=== PATIENT | female | born 2005 | race Caucasian/White ===

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

== ENCOUNTER → 2023-01-26 13:00 | Outpatient (BNVA) | payer BC, SELFPAY | PROVIDERS: Visit Provider Obstetrics & Gynecology | DX: E28.2 Polycystic ovarian syndrome (principal) | CPT/HCPCS: 84144 ==

== ENCOUNTER → 2023-03-27 13:56 | Outpatient (BNVA) | payer SELFPAY | PROVIDERS: Visit Provider Obstetrics & Gynecology | DX: Z32.00 Encounter for pregnancy test, result unknown (principal) | CPT/HCPCS: 81025; 84702 ==

== ENCOUNTER 2023-04-15 18:27 | Emergency (ER) | payer SELFPAY ==
--- NOTE | 2023-04-15 18:31 | XRR_ITS ---
PROCEDURE INFORMATION: Exam: XR Chest Exam date and time: 04/15/2023 6:57 PM Age: 18 years old Clinical indication: Pain; Chest pressure; Additional info: Cp TECHNIQUE: Imaging protocol: Radiologic exam of the chest. Views: 1 view. COMPARISON: No relevant prior studies available. FINDINGS: Lungs: No consolidation. Pleural spaces: Unremarkable. No pleural effusion. No pneumothorax. Heart/Mediastinum: No cardiomegaly. Bones/joints: No acute findings. XR/XR chest 1V portable [id number] IMPRESSION: No acute findings.
[2023-04-15 18:43] VITALS: BP 108/72; PULSE 78; RESP 14; TEMP 37.1; O2SAT 98; BMI 25.4
[2023-04-15 19:22] LABS: Basophils % 0.3 %; Eosinophils # 0.1 10^3/uL (0.0-0.8); Eosinophils % 1.4 %; Hematocrit 40.6 % (37.0-47.0); Hemoglobin 13.3 g/dL (11.5-15.3); Lymphocytes # 2.4 10^3/uL (1.5-6.5); Lymphocytes % 29.8 %; Mean Corpuscular HGB Conc 32.8 g/dL (30.0-36.0); Mean Corpuscular Hemoglobin 28.1 pg (28.0-34.0); Mean Corpuscular Volume 85.8 fl (81-99); Mean Platelet Volume 9.9 fL (7.4-10.4); Monocytes # 0.4 10^3/uL (0.2-0.9); Monocytes % 4.7 %; Neutrophils # 5.04 10^3/uL (1.8-8.0); Neutrophils % 63.4 %; Nucleated Red Blood Cells % 0 %; Platelet Count 293 10^3/cmm (130-400); Red Blood Count 4.73 10^6/uL (4.1-5.3); Red Cell Distribution Width 12.6 % (12.1-15.1); White Blood Count 7.9 10^3/uL (4.5-13.0)
[2023-04-15 19:35] LABS: HCG, Serum Qual Negative (Negative)
[2023-04-15 19:37] LABS: Alanine Aminotransferase 9 U/L (0-33); Albumin Level 4.5 g/dL (3.5-5.2); Alkaline Phosphatase 50 U/L (35-105); Aspartate Amino Transferase 13 U/L (0-32); Blood Urea Nitrogen 13 mg/dL (6-20); Calcium 9.4 mg/dL (8.5-10.5); Carbon Dioxide 25 mmol/L (22-29); Chloride 104 mmol/L (98-107); Globulin 2.5 g/dL (1.3-4.6); Glomerular Filtration Rate 157.3 mL/min (90-130); Glucose 82 mg/dL (65-115); Lipase 40 U/L (13-60); Osmolality Calculated 287 mOsm/kg (285-295); Sodium 139 mmol/L (136-145); Total Bilirubin 0.2 mg/dL (0.15-1.2)
--- NOTE | 2023-04-15 19:45 | ECG_ITS ---
[facility] Test Date: 2023-04-15 Pat Name: Leila Bowman Department: Room: Gender: Female Pediatric Rn: : 2005 Requested By: Joseph Crooks Order Number: [id number] Deng MD: Katie Costello M.D. Measurements Intervals [place] Rate: 76 P: 66 LA: 153 QRS: 58 QRSD: 78 T: 42 QT: 352 QTc: 397 Interpretive Statements SINUS RHYTHM No previous ECG available for comparison Electronically Signed On 04-16-2023 11:08:36 CDT by Katie Costello M.D. [id number]
--- NOTE | 2023-04-15 19:53 | ED_ITS ---
HPI - Chest Pain General: Chief Complaint: Chest Pain Stated Complaint: abd/ chest pain Time Seen by Provider: 04/15/23 19:28 Source: patient Mode of arrival: ambulatory Limitations: no limitations History of Present Illness: 18-year-old female states she is had a sharp chest pain over the last 2 to 3 weeks. States it is worse with palpation she denies any shortness of breath she had some diffuse abdominal cramping as well. She is resting comfortably and laughing while in the room she denies any diarrhea she has had some slight nausea. Associated symptoms: Reports abdominal pain and nausea; Deny dyspnea or fever(s) Review of Systems Const: Denies: fever(s) or chills ENMT: Denies: throat pain or dental pain Card: Reports: chest pain Resp: Denies: dyspnea GI: Reports: abdominal pain and nausea; Denies: diarrhea : Denies: dysuria Musc: Denies: neck pain or back pain Skin/Breast: Denies: rash Neuro: Denies: headache(s) PFSH ED PFSH: Medical History FAP (familial adenomatous polyposis) hx of intestinal surgery. No pertinent past medical history neghx: htn,dm,thyroid,dvt/pe PCP: None Psychiatric care Surgical History History of colectomy History of colostomy reversal History of resection of small bowel Family History Grandmother Diabetes maternal and paternal Hypertension maternal Breast cancer maternal Father Colon cancer Family/Other Colon cancer paternal Denies family history of Ovarian cancer Heart disease Family history of thyroid problem Uterine cancer Stroke Hyperchloremia Physical Exam Const: COMMON NORMALS: no acute distress, patient oriented x3 and healthy appe aring HENMT: COMMON NORMALS: normocephalic and atraumatic HEAD & SCALP: normocephalic and atraumatic Eye: COMMON NORMALS: Equal, round and reactive pupils present PUPIL: Yes Equal, round and reactive pupils present Neck/C-Spine: COMMON NORMALS: full ROM and supple Chest: COMMONS NORMALS: normal inspection of the chest OTHER: Point tenderness center of the chest Resp: COMMON NORMALS: normal respiratory effort, No retractions, No use of accessory muscles and clear to auscultation bilaterally AUSCULTATION: clear to auscultation bilaterally Cardio: COMMON NORMALS: regular rate, regular rhythm and No murmurs present (Cardio) RATE: regular rate RHYTHM: regular rhythm GI: COMMON NORMALS: Normal to inspection, nondistended, normoactive bowel sounds present, Soft to palpation, non-tender and no masses PALPATION: Yes Soft to palpation Extremity: COMMON NORMALS: normal to inspection and full ROM Neuro: COMMON NORMALS: patient oriented x3, moves all extremities and no focal motor deficits Psych: COMMON NORMALS: mental status grossly normal, Normal thought process present and cooperative THOUGHT PROCESS: Normal thought process present Skin: COMMON NORMALS: no rashes or lesions noted and no wounds GENERAL SKIN EXAM: no rashes or lesions noted Course Vital Signs: Vital signs: Vital Signs Temperature 98.8 F 04/15/23 18:43 Pulse Rate 75 04/15/23 20:00 Respiratory Rate 20 H 04/15/23 20:00 Blood Pressure 121/86 04/15/23 20:00 Pulse Oximetry 100 04/15/23 20:00 Oxygen Delivery Me thod Room Air 04/15/23 20:00 MDM - Chest Pain Medical Decision Making Says she doesPatient presents here with chest pains atypical in nature her x-ray EKG and blood work is all normal she had some slight pelvic pain urinalysis is normal ultrasound does show her history of PCOS we will prescribe her Naprosyn she is stable for discharge she is follow-up with PCP and return if worsening. Medical Records I reviewed the patient's medical records. Lab Data I reviewed the patient's lab results. 04/15/23 19:05 04/15/23 19:05 Radiology Impressions Chest X-Ray 04/15/23 18:31 IMPRESSION: No acute findings. Pelvis Ultrasound 04/15/23 19:59 IMPRESSION: Somewhat limited details as described above. Left ovarian cyst, likely benign hemorrhagic cyst. No large solid elements or obvious signs of torsion. Follow-up ultrasound assessment may be helpful if symptoms persist and to ensure resolution. Laboratory Results WBC 7.9 10^3/uL (4.5-13.0) 04/15/23 19:05 RBC 4.73 10^6/uL (4.1-5.3) 04/15/23 19:05 Hgb 13.3 g/dL (11.5-15.3) 04/15/23 19:05 Hct 40.6 % (37.0-47.0) 04/15/23 19:05 MCV 85.8 fl (81-99) 04/15/23 19:05 MCH 28.1 pg (28.0-34.0) 04/15/23 19:05 MCHC 32.8 g/dL (30.0-36.0) 04/15/23 19:05 RDW 12.6 % (12.1-15.1) 04/15/23 19:05 Plt Count 293 10^3/cmm (130-400) 04/15/23 19:05 MPV 9.9 fL (7.4-10.4) 04/15/23 19:05 Neut % (Auto) 63.4 % 04/15/23 19:05 Lymph % (Auto) 29.8 % 04/15/23 19:05 [place] % (Auto) 4.7 % 04/15/23 19:05 Eos % (Auto) 1.4 % 04/15/23 19:05 Baso % (Auto) 0.3 % 04/15/23 19:05 Neut # (Auto) 5.04 10^3/uL (1.8-8.0) 04/15/23 19:05 Lymph # (Auto) 2.4 10^3/uL (1.5-6.5) 04/15/23 19:05 [place] # (Auto) 0.4 10^3/uL (0.2-0.9) 04/15/23 19:05 Eos # (Auto) 0.1 10^3/uL (0.0-0.8) 04/15/23 19:05 Baso # (Auto) 0.0 10^3/uL (0.0-0.1) 04/15/23 19:05 Nucleated RBC % (auto) 0 % 04/15/23 19:05 Nucleated RBCs # 0.0 /100WBC 04/15/23 19:05 Sodium 139 mmol/L (136-145) 04/15/23 19:05 Potassium 4.0 mmol/L (3.5-5.1) 04/15/23 19:05 Chloride 104 mmol/L (98-107) 04/15/23 19:05 Carbon Dioxide 25 mmol/L (22-29) 04/15/23 19:05 Anion Gap 14.0 (5-19) 04/15/23 19:05 BUN 13 mg/dL (6-20) 04/15/23 19:05 Creatinine 0.5 mg/dL (0.5-0.9) 04/15/23 19:05 GFR Calculation 157.3 mL/min (90-130) H 04/15/23 19:05 Glucose 82 mg/dL (65-115) 04/15/23 19:05 Calculated Osmolality 287 mOsm/kg (285-295) 04/15/23 19:05 Calcium 9.4 mg/dL (8.5-10.5) 04/15/23 19:05 Total Bilirubin 0.2 mg/dL (0.15-1.2) 04/15/23 19:05 AST 13 U/L (0-32) 04/15/23 19:05 ALT 9 U/L (0-33) 04/15/23 19:05 Alkaline Phosphatase 50 U/L (35-105) 04/15/23 19:05 Total Protein 7.0 g/dL (6.6-8.7) 04/15/23 19:05 Albumin 4.5 g/dL (3.5-5.2) 04/15/23 19:05 Globulin 2.5 g/dL (1.3-4.6) 04/15/23 19:05 Lipase 40 U/L (13-60) 04/15/23 19:05 HCG, Qual Negative (Negative) 04/15/23 19:05 Urine Color Yellow (Yellow) 04/15/23 20:05 Urine Appearance Clear (CLEAR) 04/15/23 20:05 Urine pH 7 (5-7) 04/15/23 20:05 Ur Specific [place] 1.015 (1.005-1.030) 04/15/23 20:05 Urine Protein Neg (Negative) 04/15/23 20:05 Urine Glucose (UA) Norm (Normal) 04/15/23 20:05 Urine Ketones Negative (Negative) 04/15/23 20:05 Urine Blood Neg (Negative) 04/15/23 20:05 Urine Nitrate Negative (Negative) 04/15/23 20:05 Urine Bilirubin Neg (Negative) 04/15/23 20:05 Urine Urobilinogen Norm mg/dL (Negative) 04/15/23 20:05 Ur Leukocyte Esterase Negative (Negative) 04/15/23 20:05 EKG Data EKG 1: I personally reviewed and interpreted this EKG as follows: EKG interpretation date: 04/15/23 EKG interpretation time: 19:45 Interpretation: nsr hr [address] or t wave abnormalities qrs 78 qtc 382 Discharge Plan Discharge Patient Disposition: Home Clinical Impression: Chest wall pain, Nausea, Ovarian cyst Condition: Stable Prescriptions: New ondansetron 4 mg tablet,disintegrating 4 mg PO Q6H PRN (Reason: nausea and vomiting) Qty: 14 0RF Naprosyn 500 mg tablet 500 mg PO BID PRN (Reason: pain) Qty: 20 0RF No Action letrozole 2.5 mg tablet 2.5 mg PO DAILY 5 Days Qty: 5 4RF Rx Instructions: begin day 3 of cycle take daily through day 7 of menstrual cycle medroxyprogesterone [Provera] 10 mg tablet 10 mg PO DAILY Qty: 14 4RF Rx Instructions: start after missed period; take daily for 10 days Alive Daily Support 180 mcg-25 mg- 25 mg tablet,chewable 1 tab PO QDAY Qty: 90 2RF prenat.vits,tahmina,vvd-gryt-jzgrn Tablet 1 tab PO DAILY Qty: 30 4RF albuterol 90 mcg/actuation Aerosol 90 mcg inhalation PRN PRN (Reason: Shortness Of Breath Or Wheezing) Discharge Orders: Discharge ED (Routine); Ordered 04/15/23 Ordered By: Joseph Crooks Discharge Diet: Advance as tolerated Discharge Activity: Resume usual activity Patient Instructions: Chest Pain - Chest Wall, Acute Nausea and Vomiting (ED) Coding Level of Care Code ED Sort Manager for Keith Duron
[2023-04-15] MEDS: ketorolac 30 mg/mL INJ 15 MG IVP (19:57)
[2023-04-15] MEDS: ondansetron 2 mg/ML SDV 2 mL 4 MG IVP (19:57)
--- NOTE | 2023-04-15 19:59 | USR_ITS ---
PROCEDURE INFORMATION: Exam: US Pelvis Complete, Transabdominal and US Duplex Artery and Vein, Ovaries, Complete Exam date and time: 04/15/2023 8:50 PM Age: 18 years old Clinical indication: Pelvic pain TECHNIQUE: Imaging protocol: Real-time transabdominal pelvic ultrasound with image documentation. Real-time duplex ultrasound scan of the arterial and venous flow of the ovaries with B-mode, color Doppler flow and spectral waveform analysis. Complete Pelvis, Complete Duplex. Duplex exam was performed to evaluate for torsion and other vascular conditions. COMPARISON: US transvaginal [id number] 11/20/2022 3:38 PM FINDINGS: Uterus: The anteverted uterus measures about 7.2 x 4.5 by 5.4 cm. Suboptimally visualized endometrium measuring 2-3 in thickness with no large polypoid mass or significant fluid/debris. No large uterine myoma or obvious imaging signs of adenomyosis. Cervix: Suboptimally visualized cervix. Right ovary/adnexa: Right ovary measures 3.4 x 2.9 x 3.9 cm. No suspicious adnexal region masses or ovarian stromal edema on either side. There is flow in both ovarian parenchyma demonstrating normal spectral waveforms. Left ovary/adnexa: Multiple transabdominal pelvic ultrasound images were obtained including duplex imaging due to pain and to exclude ovarian torsion. Details are somewhat limited due to lack of endovaginal imaging. Left ovary measures 5.3 x 3.5 by 5.5 cm. The left ovary contains a unilocular cyst with heterogeneous internal echo and probable thin internal striations, measuring 3.3 x 3.9 x 2.2 cm. Details are limited due to technical factors however features are highly suggestive of benign hemorrhagic left ovarian cyst. An endometrioma may also be considered. Lack of hydrosalpinx and regional hyperemia makes acute PID somewhat unlikely. Neoplasm is less likely. Intraperitoneal space: No significant free pelvic fluid. Urinary bladder: Urinary bladder is suboptimally assessed due to nondistention. US/US pelvic complete* [id number] IMPRESSION: Somewhat limited details as described above. Left ovarian cyst, likely benign hemorrhagic cyst. No large solid elements or obvious signs of torsion. Follow-up ultrasound assessment may be helpful if symptoms persist and to ensure resolution.
[2023-04-15 20:00] VITALS: BP 121/86; PULSE 75; RESP 20; O2SAT 100
[2023-04-15 20:12] LABS: Add Urine Microscopic? NO; Charge for UA Resulting for Rev
[2023-04-15 20:16] LABS: Urine Appearance Clear (CLEAR); Urine Color Yellow (Yellow)
[2023-04-15 20:19] LABS: Bilirubin Urine Neg (Negative); Blood Urine Neg (Negative); Glucose Urine UA Norm (Normal); Ketones Urine Negative (Negative); Leukocyte Esterase Urine Negative (Negative); Nitrate Urine Negative (Negative); Protein Urine Neg (Negative); Specific Gravity, Urine 1.015 (1.005-1.030); Urobilinogen Urine Norm (Negative); pH Urine 7 (5-7)
[2023-04-15 21:37] VITALS: BP 110/75; PULSE 70; O2SAT 100
--- NOTE | 2023-04-19 13:10 | DCPLANNER ---
manager fleet called patient due to no primary care physician - no answer at this time.
== END 2023-04-15 21:25 | disposition home or self-care (01) ==
PROVIDERS: Emergency Provider Emergency Medicine
DX: R07.89 Other chest pain (principal); R11.0 Nausea; N83.202 Unspecified ovarian cyst, left side
CPT/HCPCS: 36415; 71045; 76856; 80053; 81003; 83690; 84703; 85025; 93005; 96374; 96375; 99285; J1885; J2405

== ENCOUNTER 2023-05-05 07:13 | Emergency (ER) | payer BC, SELFPAY ==
[2023-05-05 07:23] VITALS: BP 117/76; PULSE 91; RESP 15; TEMP 37; O2SAT 98; BMI 25.4
[2023-05-05 07:27] VITALS: BP 117/76; PULSE 80; O2SAT 100
[2023-05-05 07:31] VITALS: RESP 14; O2SAT 100
[2023-05-05] MEDS: morphine 4 mg/mL SDV 1 mL IVP (07:31)
[2023-05-05] MEDS: ketorolac 30 mg/mL INJ IVP (07:32)
[2023-05-05] MEDS: tizanidine 4 mg Tablet PO (07:33)
[2023-05-05] MEDS: dexamethasone 10 mg/mL INJ IVP (07:33)
--- NOTE | 2023-05-05 07:40 | W.ED.BACK ---
HPI - Back Pain/Injury General: Chief Complaint: Back Pain/Injury Stated Complaint: back pain going to legs Time Seen by Provider: 05/05/23 07:23 Source: patient Mode of arrival: ambulatory History of Present Illness: 18-year-old female who presents to the emergency room with complaints of back pain primarily into her right leg but somewhat to both legs. Doing a little more heavy lifting the last few days at work. His pain started yesterday at around 4:00. No trauma no injury no previous surgery to her back. She has had episodes of back pain in the past. No fecal incontinence or urinary retention MD elicited complaint: back pain Pertinent past history: prior back pain Onset (ago): day(s) (1) Timing: constant Quality: sharp Location: lumbar spine Radiation: right upper leg and right leg below the knee Exacerbating factors: walking Relieving factors: supine and sitting upright Context: turning/twisting Associated symptoms: Deny abdominal pain, arthralgias, chills, change in bowel habits, difficulty walking, dysuria, fatigue, fecal incontinence, fever(s), hematuria, myalgias, nausea, numbness, syncope, tingling/numbness/burning, urinary frequency, urinary urgency, vomiting or weakness Review of Systems Const: Denies: fever(s), chills or fatigue Card: Denies: syncope Resp: Denies: dyspnea, productive cough or non-productive cough GI: Denies: abdominal pain, nausea, vomiting, fecal incontinence or change in bowel habits : Denies: dysuria, urinary frequency, urinary urgency or hematuria Musc: Reports: back pain and extremity pain Skin/Breast: Denies: rash or pruritus Neuro: Denies: difficulty walking PFS ED PFSH: Medical History FAP (familial adenomatous polyposis) hx of intestinal surgery. No pertinent past medical history neghx: htn,dm,thyroid,dvt/pe PCP: None Psychiatric care Surgical History History of colectomy History of colostomy reversal History of resection of small bowel Family History Grandmother Diabetes maternal and paternal Hypertension maternal Breast cancer maternal Father Colon cancer Family/Other Colon cancer paternal Denies family history of Ovarian cancer Heart disease Family history of thyroid problem Uterine cancer Stroke Hyperchloremia Physical Exam Const: GENERAL APPEARANCE: cooperative and comfortable ORIENTATION/CONSCIOUSNESS: Yes awake, Yes oriented to person, Yes oriented to place and Yes oriented to time HENMT: COMMON NORMALS: normocephalic, atraumatic and hearing grossly normal bilaterally HEAD & SCALP: normocephalic and atraumatic Resp: COMMON NORMALS: normal respiratory effort, No retractions, No use of accessory muscles and clear to auscultation bilaterally AUSCULTATION: clear to auscultation bilaterally Cardio: COMMON NORMALS: regular rate, regular rhythm and No murmurs present (Cardio) RATE: regular rate RHYTHM: regular rhythm Extremity: COMMON NORMALS: normal to inspection, capillary refill normal, no clubbing, cyanosis or edema, no calf tenderness and no pedal edema Neuro: SENSORIUM/ORIENTATION: Yes oriented to person, Yes oriented to place and Yes oriented to time OTHER: Deep tendon reflexes +2/4 bilaterally at the patellar tendon dorsum plantar flex strength 5 of 5 EHL +5 sensation lower extremities normal Skin: COMMON NORMALS: no rashes or lesions noted GENERAL SKIN EXAM: no rashes or lesions noted Course Vital Signs: Vital signs: Vital Signs Temperature 98.6 F 05/05/23 07:23 Pulse Rate 87 05/05/23 08:14 Respiratory Rate 14 05/05/23 07:31 Blood Pressure 117/76 05/05/23 08:14 Pulse Oximetry 98 05/05/23 08:14 Oxygen Delivery Me thod Room Air 05/05/23 07:27 MDM - Back Pain/Injury Medical Decision Making No red flag symptoms exam benign. Improved with medications given discharge home with diclofenac steroid taper tizanidine note given for work if symptoms persist follow-up with primary care Discharge Plan Discharge Patient Disposition: Home Clinical Impression: Strain of lumbar region Condition: Stable Prescriptions: New tizanidine 4 mg tablet 4 mg PO Q6H PRN (Reason: muscle spasticity) Qty: 20 0RF Rx Instructions: do not exceed 3 doses per 24 hrs prednisone 20 mg tablet 20 mg PO TID Qty: 15 0RF Rx Instructions: 1 p.o. 3 times daily x3 days, 1 p.o. twice daily x2 days, 1 p.o. daily x2 days diclofenac sodium 75 mg tablet,delayed release (DR/EC) 75 mg PO Q12H PRN (Reason: pain) Qty: 20 0RF Discontinued Alive Daily Support 180 mcg-25 mg- 25 mg tablet,chewable 1 tab PO QDAY Qty: 90 2RF naproxen [Naprosyn] 500 mg tablet 500 mg PO BID PRN (Reason: pain) Qty: 20 0RF No Action letrozole 2.5 mg tablet 2.5 mg PO DAILY 5 Days Qty: 5 4RF Rx Instructions: begin day 3 of cycle take daily through day 7 of menstrual cycle medroxyprogesterone [Provera] 10 mg tablet 10 mg PO DAILY Qty: 14 4RF Rx Instructions: start after missed period; take daily for 10 days prenat.vits,tahmina,bcm-tzks-rfjfn Tablet 1 tab PO DAILY Qty: 30 4RF albuterol 90 mcg/actuation Aerosol 90 mcg inhalation PRN PRN (Reason: Shortness Of Breath Or Wheezing) ondansetron 4 mg tablet,disintegrating 4 mg PO Q6H PRN (Reason: nausea and vomiting) Qty: 14 0RF Discharge Orders: Discharge ED (Routine); Ordered 05/05/23 Ordered By: Tao Delcid Discharge Diet: Usual diet Discharge Activity: Increase activity as tolerated Patient Instructions: Back Pain (ED), Opioid Safety, Pain Management Stand Alone Forms: Work/School Release Coding Level of Care Code ED Instrument Room Technician for Keith Duron
[2023-05-05 08:14] VITALS: BP 117/76; PULSE 87; O2SAT 98
== END 2023-05-05 08:15 | disposition home or self-care (01) ==
PROVIDERS: Emergency Provider Family Medicine
DX: S33.5XXA Sprain of ligaments of lumbar spine, initial encounter (principal); X50.0XXA Overexertion from strenuous movement or load, initial encounter
CPT/HCPCS: 96374; 96375; 99284; J1100; J1885; J2270

== ENCOUNTER → 2023-05-15 10:39 | Outpatient (BNVA) | payer BC, SELFPAY | PROVIDERS: Visit Provider Family Medicine | DX: Z32.00 Encounter for pregnancy test, result unknown (principal) | CPT/HCPCS: 84702 ==

== ENCOUNTER → 2023-05-30 15:00 | Outpatient (BNVA) | payer BC, SELFPAY | PROVIDERS: Visit Provider Obstetrics & Gynecology | DX: Z32.00 Encounter for pregnancy test, result unknown (principal) | CPT/HCPCS: 84702 ==

== ENCOUNTER 2024-03-22 19:38 | Emergency (ER) | payer SELFPAY ==
[2024-03-22 20:04] VITALS: BP 110/72; PULSE 73; RESP 17; TEMP 37.1; O2SAT 98; BMI 25.7
[2024-03-22 21:45] LABS: Basophils % 0.2 %; Eosinophils % 0.7 %; Hematocrit 37.1 % (36-47); Lymphocytes # 1.6 10^3/uL (0.8-4.8); Lymphocytes % 26.6 %; Mean Corpuscular HGB Conc 32.6 g/dL (30-55); Mean Corpuscular Volume 85.9 fl (85-98); Mean Platelet Volume 10.4 fL (7.4-10.4); Monocytes # 0.3 10^3/uL (0.2-0.9); Monocytes % 4.2 %; Neutrophils # 4.08 10^3/uL (1.8-7.7); Neutrophils % 68.1 %; Nucleated Red Blood Cells % 0 %; Platelet Count 231 10^3/cmm (157-399); Red Blood Count 4.32 10^6/uL (3.85-5.65); Red Cell Distribution Width 13.2 % (12.1-15.1); White Blood Count 5.98 10^3/uL (3.29-11.43)
[2024-03-22 22:24] LABS: Alanine Aminotransferase 8 U/L (0-33); Albumin Level 4.4 g/dL (3.5-5.2); Alkaline Phosphatase 46 U/L (35-105); Anion Gap 14.7 (5-19); Aspartate Amino Transferase 10 U/L (0-32); Blood Urea Nitrogen 18 mg/dL (6-20); Calcium 8.7 mg/dL (8.5-10.5); Carbon Dioxide 24 mmol/L (22-29); Chloride 106 mmol/L (98-107); Creatinine Clr Calc Pharmacy 143.9971; Globulin 2.8 g/dL (1.3-4.6); Glomerular Filtration Rate 155.7 mL/min (90-130); Glucose 84 mg/dL (65-115); Osmolality Calculated 293 mOsm/kg (285-295); Potassium 3.7 mmol/L (3.5-5.1); Sodium 141 mmol/L (136-145); Total Bilirubin 0.2 mg/dL (0.15-1.2); Total Protein 7.2 g/dL (6.6-8.7)
--- NOTE | 2024-03-22 23:02 | USR_ITS ---
PROCEDURE INFORMATION: Exam: US Pelvis, Transvaginal Exam date and time: 03/22/2024 11:54 PM Age: 19 years old Clinical indication: Pelvic pain; Additional info: Vaginal bleeding TECHNIQUE: Imaging protocol: Real-time transvaginal pelvic ultrasound with image documentation. Transvaginal imaging was used for better evaluation of the endometrium, adnexa, and/or cervix. COMPARISON: US pelvic complete* [id number] 04/15/2023 8:50 PM FINDINGS: Uterus: Uterus is normal. Endometrial stripe is normal. Cervix: Trace nonspecific fluid in the cervix. Right ovary/adnexa: Normal. No mass. Normal ovarian blood flow. Left ovary/adnexa: Normal. No mass. Normal ovarian blood flow. Intraperitoneal space: Trace nonspecific fluid in the pelvis. US/US transvaginal [id number] IMPRESSION: 1. Uterus and ovaries appear within normal limits 2. Trace nonspecific fluid in the cervix. 3. Trace nonspecific fluid in the pelvis.
[2024-03-22 23:09] LABS: Add Urine Culture? Yes; Add Urine Microscopic? YES; Bacteria Urine TRACE /hpf; Bilirubin Urine Neg (Negative); Blood Urine 3+ (Negative); Glucose Urine UA Norm (Normal); Ketones Urine 1+ (Negative); Leukocyte Esterase Urine Negative (Negative); Nitrate Urine Negative (Negative); Protein Urine 1+ (Negative); RBC Urine 50-80 /hpf (0-2); Squamous Epithelial Cell Urine 0-4 /hpf (0-5); Urine Appearance Hazy (CLEAR); Urine Color Yellow (Yellow); Urobilinogen Urine Neg (Negative); WBC Urine 0-4 /hpf (0-5); pH Urine 5 (5-7)
[2024-03-22 23:10] LABS: HCG Qualitative Urine. Negative (Negative)
[2024-03-22] MEDS: oxyCODONE-APAP 5-325 mg Tablet 1 TAB PO (23:10)
[2024-03-22] MEDS: ketorolac 10 mg Tablet PO (23:10)
--- NOTE | 2024-03-23 00:27 | ED_ITS ---
HPI - Female Genitourinary 2 General: Chief complaint: Urogenital-Female Stated complaint: Vag bleeding Time Seen by Provider: 03/22/24 22:24 History of Present Illness: 19-year-old female, who states that she has to uteruses. She has been bleeding heavily the last couple of days. She is experienced intense vaginal cramping. Passing large clots. She notes that she has changed 7 pads today. She does not believe she is . Associated symptoms: Reports abdominal pain and nausea; Deny headache(s) or vaginal discharge Review of Systems 2 Const: Denies: fever(s), chills or body aches Eyes: Denies: change in vision Card: Denies: chest pain or palpitations Resp: Denies: dyspnea, productive cough, non-productive cough or wheezing GI: Reports: abdominal pain and nausea; Denies: vomiting, diarrhea or hematochezia : Reports: vaginal bleeding and irregular period; Denies: difficulty voiding, dysuria or vaginal discharge Skin/Breast: Denies: rash Neuro: Denies: headache(s), weakness in extremities, dizziness or confusion PFSH ED 2 PFSH: Medical History (Updated 03/23/24 @ 00:29 by Arnold Eagle DO) ADHD Posttraumatic stress disorder Autism Schizophrenia Anxiety Depression Psychiatric care No pertinent past medical history neghx: htn,dm,thyroid,dvt/pe PCP: None FAP (familial adenomatous polyposis) hx of intestinal surgery. Surgical History S/P colonoscopy History of colectomy History of colostomy reversal History of resection of small bowel Family History (Updated 05/15/23 @ 09:34 by Demetrice Mota LPN) Grandmother Diabetes maternal and paternal Hypertension maternal Breast cancer maternal Father Colon cancer Family/Other Colon cancer paternal Other CAD (coronary artery disease) Clotting disorder Dementia Lung disease Psychiatric illness Denies family history of Ovarian cancer Heart disease Chronic kidney disease (CKD) Anesthesia complication Family history of thyroid problem Bleeding disorder Uterine cancer Stroke Hyperchloremia Social History Smoking and tobacco/nicotine status: former use of tobacco/nicotine Quit status (tobacco/nicotine): has quit using Year quit tobacco: 01/2023 Alcohol intake: current Alcohol intake frequency: holidays/special occasions only Substance/Drug Use: never Lives independently: Yes Marital status: Number of children: 0 Current occupational status: employed 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 Special kp needs: No Agree to transfusion: Yes Physical Exam 2 Const: COMMON NORMALS: no acute distress GENERAL APPEARANCE: cooperative; not ill appearing and not frail appearing HENMT: COMMON NORMALS: normocephalic, atraumatic and Normal external nose present HEAD & SCALP: normocephalic and atraumatic FACE & SINUS: normal facial exam and face symmetric NOSE: Normal external nose present Eye: COMMON NORMALS: Equal, round and reactive pupils present and EOMs intact bilaterally PUPIL: Yes Equal, round and reactive pupils present Neck/C-Spine: GENERAL: Yes trachea midline Chest: CHEST: Yes Symmetrical chest wall rise Resp: COMMON NORMALS: normal respiratory effort, No retractions, No use of accessory muscles and clear to auscultation bilaterally AUSCULTATION: clear to auscultation bilaterally Cardio: COMMON NORMALS: regular rate and regular rhythm RATE: regular rate RHYTHM: regular rhythm GI: COMMON NORMALS: Normal to inspection, nondistended, normoactive bowel sounds present Extremity: COMMON NORMALS: no pedal edema Neuro: OG COMA SCALE: document GCS findings Og coma scale eye opening: Spontaneous [place] coma scale verbal response: Orientated Og coma scale motor response: Obey commands Og coma scale total score: 15 S ENSORY EXAM: Yes extremities (intact) Psych: COMMON NORMALS: speech normal SPEECH: Yes normal speech Skin: COMMON NORMALS: no rashes or lesions noted GENERAL SKIN EXAM: no rashes or lesions noted Course 2 Vital Signs: Vital signs: Vital Signs Temperature 98.8 F 03/22/24 20:04 Pulse Rate 70 03/23/24 00:53 Respiratory Rate 16 03/23/24 00:53 Blood Pressure 110/72 03/22/24 20:04 Pulse Oximetry 98 03/23/24 00:53 Oxygen Delivery Me thod Room Air 03/22/24 20:04 MDM - Female Medical Decision Making Serum hCG is 1. Vitals are stable. She is afebrile. White blood cell count is 6. Hemoglobin is 12. No evidence of urinary tract infection. Ultrasound reveals no significant abnormality. She will be discharged. Close outpatient follow-up. Return for continued or worsening bleeding. Lab Data 03/22/24 20:50 03/22/24 20:50 Radiology Impressions Transvaginal US 03/22/24 23:02 IMPRESSION: 1. Uterus and ovaries appear within normal limits 2. Trace nonspecific fluid in the cervix. 3. Trace nonspecific fluid in the pelvis. Laboratory Results WBC 5.98 10^3/uL (3.29-11.43) 03/22/24 20:50 RBC 4.32 10^6/uL (3.85-5.65) 03/22/24 20:50 Hgb 12.10 g/dL (11.27-16.99) 03/22/24 20:50 Hct 37.1 % (36-47) 03/22/24 20:50 MCV 85.9 fl (85-98) 03/22/24 20:50 MCH 28.0 pg (27-33) 03/22/24 20:50 MCHC 32.6 g/dL (30-55) 03/22/24 20:50 RDW 13.2 % (12.1-15.1) 03/22/24 20:50 Plt Count 231 10^3/cmm (157-399) 03/22/24 20:50 MPV 10.4 fL (7.4-10.4) 03/22/24 20:50 Neut % (Auto) 68.1 % 03/22/24 20:50 Lymph % (Auto) 26.6 % 03/22/24 20:50 [place] % (Auto) 4.2 % 03/22/24 20:50 Eos % (Auto) 0.7 % 03/22/24 20:50 Baso % (Auto) 0.2 % 03/22/24 20:50 Neut # (Auto) 4.08 10^3/uL (1.8-7.7) 03/22/24 20:50 Lymph # (Auto) 1.6 10^3/uL (0.8-4.8) 03/22/24 20:50 [place] # (Auto) 0.3 10^3/uL (0.2-0.9) 03/22/24 20:50 Eos # (Auto) 0.0 10^3/uL (0.0-0.8) 03/22/24 20:50 Baso # (Auto) 0.0 10^3/uL (0.0-0.1) 03/22/24 20:50 Nucleated RBC % (auto) 0 % 03/22/24 20:50 Nucleated RBCs # 0.0 /100WBC 03/22/24 20:50 Sodium 141 mmol/L (136-145) 03/22/24 20:50 Potassium 3.7 mmol/L (3.5-5.1) 03/22/24 20:50 Chloride 106 mmol/L (98-107) 03/22/24 20:50 Carbon Dioxide 24 mmol/L (22-29) 03/22/24 20:50 Anion Gap 14.7 (5-19) 03/22/24 20:50 BUN 18 mg/dL (6-20) 03/22/24 20:50 Creatinine 0.5 mg/dL (0.5-0.9) 03/22/24 20:50 GFR Calculation 155.7 mL/min (90-130) H 03/22/24 20:50 Glucose 84 mg/dL (65-115) 03/22/24 20:50 Calculated Osmolality 293 mOsm/kg (285-295) 03/22/24 20:50 Calcium 8.7 mg/dL (8.5-10.5) 03/22/24 20:50 Total Bilirubin 0.2 mg/dL (0.15-1.2) 03/22/24 20:50 AST 10 U/L (0-32) 03/22/24 20:50 ALT 8 U/L (0-33) 03/22/24 20:50 Alkaline Phosphatase 46 U/L (35-105) 03/22/24 20:50 Total Protein 7.2 g/dL (6.6-8.7) 03/22/24 20:50 Albumin 4.4 g/dL (3.5-5.2) 03/22/24 20:50 Globulin 2.8 g/dL (1.3-4.6) 03/22/24 20:50 HCG, Qual Negative (Negative) 03/22/24 22:52 Ser , Semi-Qnt 1.00 mIU/mL 03/22/24 20:50 Urine Color Yellow (Yellow) 03/22/24 22:52 Urine Appearance Hazy (CLEAR) A 03/22/24 22:52 Urine pH 5 (5-7) 03/22/24 22:52 Ur Specific [place] 1.020 (1.005-1.030) 03/22/24 22:52 Urine Protein 1+ (Negative) H 03/22/24 22:52 Urine Glucose (UA) Norm (Normal) 03/22/24 22:52 Urine Ketones 1+ (Negative) H 03/22/24 22:52 Urine Blood 3+ (Negative) H 03/22/24 22:52 Urine Nitrate Negative (Negative) 03/22/24 22:52 Urine Bilirubin Neg (Negative) 03/22/24 22:52 Urine Urobilinogen Neg mg/dL (Negative) 03/22/24 22:52 Ur Leukocyte Esterase Negative (Negative) 03/22/24 22:52 Urine RBC 50-80 /hpf (0-2) H 03/22/24 22:52 Urine WBC 0-4 /hpf (0-5) H 03/22/24 22:52 Ur Squamous Epith Cells 0-4 /hpf (0-5) H 03/22/24 22:52 Amorphous Sediment Not Reportable 03/22/24 22:52 Urine Bacteria Trace /hpf (NONE) 03/22/24 22:52 Blood Type O Positive 03/22/24 20:50 Rho(D) Type Rh positive 03/22/24 20:50 All radiology interpretation(s) finalized by discharge Discharge Plan Discharge Patient Disposition: Home Clinical Impression: DUB (dysfunctional uterine bleeding) Condition: Stable Prescriptions: New ketorolac 10 mg tablet 10 mg PO TID PRN (Reason: pain) Qty: 10 0RF Continued Provera 10 mg tablet 10 mg PO DAILY Qty: 7 4RF Rx Instructions: start after missed period; take daily for 10 days Discontinued diclofenac sodium 75 mg tablet,delayed release (DR/EC) 75 mg PO Q12H PRN (Reason: pain) Qty: 20 0RF No Action prenat.vits,tahmina,[id number] Tablet 1 tab PO DAILY Qty: 30 4RF albuterol 90 mcg/actuation Aerosol 90 mcg inhalation PRN PRN (Reason: Shortness Of Breath Or Wheezing) ondansetron 4 mg tablet,disintegrating 4 mg PO Q6H PRN (Reason: nausea and vomiting) Qty: 14 0RF tizanidine 4 mg tablet 4 mg PO Q6H PRN (Reason: muscle spasticity) Qty: 20 0RF Rx Instructions: do not exceed 3 doses per 24 hrs Discharge Orders: Discharge ED (Routine); Ordered 03/23/24 Ordered By: Arnold Eagle Patient Instructions: Abnormal (Dysfunctional) Uterine Bleeding (ED), Opioid Safety, Pain Management Activity Restrictions/Additional Instructions: Pain medication as directed. If brisk bleeding continues more than 24 more hours, fill the medroxyprogesterone and take accordingly. This will stop your bleeding, and then you will have a withdrawal bleed days later. This will likely restart your period. Return for worsening bleeding despite the above, fever, worsening pain, other concerning symptoms. 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
[2024-03-23 00:53] VITALS: PULSE 70; RESP 16; O2SAT 98
== END 2024-03-23 00:42 | disposition home or self-care (01) ==
PROVIDERS: Emergency Medicine; Emergency Provider Emergency Medicine
DX: N93.8 Other specified abnormal uterine and vaginal bleeding (principal); Z87.891 Personal history of nicotine dependence; F84.0 Autistic disorder
CPT/HCPCS: 36415; 76830; 80053; 81001; 81025; 84702; 85025; 86900; 87077; 87086; 87186; 99284

== ENCOUNTER 2025-01-11 14:16 | Emergency (ER) | payer BC, SELFPAY ==
[2025-01-11 14:20] VITALS: BP 120/67; PULSE 86; RESP 16; TEMP 36.5; O2SAT 98; BMI 25.4
[2025-01-11 17:06] VITALS: BP 126/76; O2SAT 99
--- NOTE | 2025-01-11 17:29 | ED_ITS ---
HPI - Asthma General: Chief Complaint: Asthma Stated Complaint: cough Time Seen by Provider: 01/11/25 16:37 History of Present Illness: This patient is a 20-year-old white female who presents to the emergency department complaining of asthma. She states her asthma started acting up about 2 days ago. She has been coughing. She has had a low-grade fever. She does not have her albuterol inhaler. She states that her mother's house. Associated symptoms: Reports fever(s) and productive cough Related Data Home Medications ?Medication ?Instructions ?Recorded ?Confirmed albuterol 90 mcg/actuation aerosol 90 mcg inhalation P RN PRN 12/13/22 05/30/23 inhaler Shortness Of Breath Or Wheez ing Previous Rx's ?Medication ?Instructions ?Recorded prenat.vits,tahmina,[id number] 1 tab PO DAILY #30 tabs 03/27/23 ondansetron 4 mg disintegrating 4 mg PO Q6H PRN nausea and 04/15/23 tablet vomiting #14 tabs tizanidine 4 mg tablet 4 mg PO Q6H PRN muscle spast icity 05/15/23 #20 tabs ketorolac 10 mg tablet 10 mg PO TID PRN pain #10 ta bs 03/23/24 medroxyprogesterone 10 mg tablet 10 mg PO DAILY #7 tab s 03/23/24 (Provera) albuterol sulfate 90 mcg/actuation 2 inh inhalation Q4 H PRN shortness 01/11/25 aerosol inhaler (Ventolin HFA) of breath or wheezing # 8.5 grams doxycycline monohydrate 100 mg 100 mg PO BID 10 days # 20 caps 01/11/25 capsule prednisone 5 mg tablets in a dose See Rx Instructions PO .COMPLEX 01/11/25 pack #21 ea Allergies Allergy/AdvReac Type Severity Reaction Status Date / Time pineapple Allergy Severe ALGY-Anaphy Verified 03/22/24 20:11 laxis adhesive tape Allergy ALGY-Rash Verified 03/22/24 20:11 Review of Systems General: Reports: 10 or more systems reviewed and unremarkable except in HPI and below Const: Reports: fever(s) Resp: Reports: productive cough and wheezing PFSH ED PFSH: Medical History (Updated 01/11/25 @ 17:25 by Mikal Gonsales MD) ADHD Posttraumatic stress disorder Autism Schizophrenia Anxiety Depression No pertinent past medical history neghx: htn,dm,thyroid,dvt/pe PCP: None FAP (familial adenomatous polyposis) hx of intestinal surgery. Surgical History S/P colonoscopy History of colectomy History of colostomy reversal History of resection of small bowel Family History (Updated 05/15/23 @ 09:34 by Demetrice Mota LPN) Grandmother Diabetes maternal and paternal Hypertension maternal Breast cancer maternal Father Colon cancer Family/Other Colon cancer paternal Other CAD (coronary artery disease) Clotting disorder Dementia Lung disease Psychiatric illness Denies family history of Ovarian cancer Heart disease Chronic kidney disease (CKD) Anesthesia complication Family history of thyroid problem Bleeding disorder Uterine cancer Stroke Hyperchloremia Social History Smoking and tobacco/nicotine status: former use of tobacco/nicotine Quit status (tobacco/nicotine): has quit using Year quit tobacco: 01/2023 Alcohol intake: current Alcohol intake frequency: holidays/special occasions only Substance/Drug Use: never Lives independently: Yes Marital status: Number of children: 0 Current occupational status: employed 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 Special kp needs: No Agree to transfusion: Yes Physical Exam Const: COMMON NORMALS: no acute distress, patient oriented x3 and no limitations GENERAL APPEARANCE: cooperative and comfortable HENMT: COMMON NORMALS: normocephalic, atraumatic, Normal nasal mucous membranes and turbinates present, moist oral mucous membranes and oropharynx normal HEAD & SCALP: normal to inspection, normocephalic and atraumatic FACE & SINUS: normal facial exam NOSE: Normal nasal mucous membranes and turbinates present Eye: COMMON NORMALS: Equal, round and reactive pupils present, EOMs intact bilaterally and conjunctivae normal GENERAL EYE: appearance normal, both eyes and all related structures CONJUNCTIVA: Yes conjunctivae normal PUPIL: Yes Equal, round and reactive pupils present Neck/C-Spine: COMMON NORMALS: supple and no JVD Chest: COMMONS NORMALS: normal inspection of the chest OTHER: Cough Resp: COMMON NORMALS: normal respiratory effort and clear to auscultation bilaterally AUSCULTATION: clear to auscultation bilaterally Cardio: COMMON NORMALS: no JVD, regular rate, regular rhythm, No gallops present (Cardio), No murmurs present (Cardio) and No rub (Cardio) RATE: regular rate RHYTHM: regular rhythm GI: COMMON NORMALS: Normal to inspection, nondistended, normoactive bowel sounds present, Soft to palpation and non-tender AUSCULTATION: Yes normoactive bowel sounds PALPATION: Yes Soft to palpation : COMMON NORMALS: Yes no CVA tenderness BLADDER/KIDNEY EXAM: Yes no CVA tenderness Back/Pelvis: COMMON NORMALS: no CVA tenderness and thoracic and lumbar spine normal to inspection Extremity: COMMON NORMALS: normal to inspection Neuro: COMMON NORMALS: patient oriented x3 and CN's II-XII intact bilaterally Psych: COMMON NORMALS: mental status grossly normal, Normal thought process present and cooperative THOUGHT PROCESS: Normal thought process present Skin: COMMON NORMALS: no rashes or lesions noted, turgor normal and no jaundice GENERAL SKIN EXAM: no rashes or lesions noted and turgor normal Course Vital Signs: Vital signs: Vital Signs Temperature 97.7 F 01/11/25 14:20 Pulse Rate 86 01/11/25 14:20 Respiratory Rate 16 01/11/25 14:20 Blood Pressure 126/76 01/11/25 17:06 Pulse Oximetry 99 01/11/25 17:06 Oxygen Delivery Me thod Room Air 01/11/25 14:20 MDM - Asthma Medical Decision Making Patient did request a nebulizer treatment so we did administer a DuoNeb. I will treat the patient for bronchitis. She was placed on doxycycline and prednisone given her first doses in the emergency department. I also prescribed an albuterol metered-dose inhaler. Recommended she follow-up with her primary care provider within 1 week for recheck. She was discharged in stable condition. No radiology studies performed this visit Discharge Plan Discharge Patient Disposition: Home Clinical Impression: Bronchitis Asthma with acute exacerbation Qualifiers: Asthma severity: mild Asthma persistence: intermittent Qualified Code(s): J45.21 - Mild intermittent asthma with (acute) exacerbation Condition: Stable Prescriptions: New doxycycline monohydrate 100 mg capsule 100 mg PO BID 10 Days Qty: 20 0RF prednisone 5 mg tablets,dose pack See Rx Instructions PO .COMPLEX Qty: 21 0RF Rx Instructions: prednisone 5 mg: take 8 tablets (40 mg) on Day 1; 7 tablets (35 mg) on Day 2; then decrease by 1 tablet every day until finished albuterol sulfate [Ventolin HFA] 90 mcg/actuation HFA aerosol inhaler 2 inh inhalation Q4H PRN (Reason: shortness of breath or wheezing) Qty: 8.5 0RF No Action prenat.vits,tahmina,[id number] Tablet 1 tab PO DAILY Qty: 30 4RF albuterol 90 mcg/actuation Aerosol 90 mcg inhalation PRN PRN (Reason: Shortness Of Breath Or Wheezing) ondansetron 4 mg tablet,disintegrating 4 mg PO Q6H PRN (Reason: nausea and vomiting) Qty: 14 0RF tizanidine 4 mg tablet 4 mg PO Q6H PRN (Reason: muscle spasticity) Qty: 20 0RF Rx Instructions: do not exceed 3 doses per 24 hrs ketorolac 10 mg tablet 10 mg PO TID PRN (Reason: pain) Qty: 10 0RF Provera 10 mg tablet 10 mg PO DAILY Qty: 7 4RF Rx Instructions: start after missed period; take daily for 10 days Discharge Orders: Discharge ED (Routine); Ordered 01/11/25 Ordered By: Mikal Gonsales Patient Instructions: Asthma (DC), Acute Bronchitis (ED) Activity Restrictions/Additional Instructions: Follow-up with your primary care provider within 1 week for recheck. 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
[2025-01-11 17:36] VITALS: BP 126/76; O2SAT 100
[2025-01-11 17:39] VITALS: PULSE 82; RESP 16; O2SAT 100
[2025-01-11] MEDS: ipratropium-albuterol 3 mL Neb INHALATION (17:39)
[2025-01-11] MEDS: doxycycline 100 mg Tablet PO (17:42)
[2025-01-11] MEDS: predniSONE 20 mg Tablet 60 MG PO (17:42)
[2025-01-11 17:47] VITALS: BP 126/76; PULSE 98; RESP 18; O2SAT 100
== END 2025-01-11 17:48 | disposition home or self-care (01) ==
PROVIDERS: Emergency Provider Emergency Medicine
DX: J45.21 Mild intermittent asthma with (acute) exacerbation (principal); J40 Bronchitis, not specified as acute or chronic; Z87.891 Personal history of nicotine dependence
CPT/HCPCS: 94640; 99283; J7512